=== PATIENT | male | born 1970 | race Caucasian/White ===

== ENCOUNTER 2018-07-13 12:17 | Inpatient (IN) | payer OTHER ==
[2018-07-13] MEDS: HYDROCODONE/APAP (10/325) TAB PO (12:31)
[2018-07-13] MEDS: ONDANSETRON (ODT) 4 MG TAB ODT (12:31)
[2018-07-13] MEDS: SOD CHLORIDE 0.9% 1,000 ML IV (13:03)
[2018-07-13] MEDS: PROPOFOL 200 MG INJ IV (14:00)
[2018-07-13 14:51] LABS: ADD MAN DIFF? NO
[2018-07-13 14:56] LABS: WHITE BLOOD COUNT 19.9 10^3/ul (4.8-10.8)
[2018-07-13 14:56] LABS: BASOPHILS % 0.2 % (0.0-2.0); EOSINOPHILS % 0.2 % (0.0-7.0); HEMATOCRIT 42.6 % (42.0-52.0); HEMOGLOBIN 14.1 g/dl (14.0-18.0); LYMPHOCYTES # 1.8 10^3/ul (0.8-2.9); LYMPHOCYTES % 9.1 % (15.0-51.0); MEAN CORPUSCULAR HEMOGLOBIN 29.3 pg (29.0-33.0); MEAN CORPUSCULAR HGB CONC 33.1 g/dl (32.0-37.0); MEAN CORPUSCULAR VOLUME 88.6 fl (82.0-101.0); MEAN PLATELET VOLUME 9.9 fl (7.4-10.4); MONOCYTES % 5.1 % (0.0-11.0); NEUTROPHIL # 16.9 10^3/ul (1.6-7.5); NEUTROPHILS % 84.9 % (39.0-77.0); PLATELET COUNT 259 10^3/UL (140-415); RED BLOOD COUNT 4.81 10^6/ul (4.70-6.10); RED CELL DISTRIBUTION WIDTH 13.6 % (11.5-14.5)
[2018-07-13] MEDS ORDERED: HYDROmorphONE 1 MG/ML SYG (15:30)
[2018-07-13] MEDS: HYDROmorphONE 0.5 MG/0.5 ML SYG IV ×2 (15:32→21:07)
[2018-07-13 15:47] LABS: ANION GAP 9 (5-13); BLOOD UREA NITROGEN 14 mg/dl (7-20); CALCIUM 8.5 mg/dl (8.4-10.2); CARBON DIOXIDE 25 mmol/L (21-31); CHLORIDE 105 mmol/L (97-110); CREATININE 0.82 mg/dl (0.61-1.24); Estimated GFR > 60 mL/min (>60); GLUCOSE 98 mg/dl (70-220); POTASSIUM 4.7 mmol/L (3.5-5.1); SODIUM 139 mmol/L (135-144)
[2018-07-13] MEDS ORDERED: ONDANSETRON 4 MG INJ IV (17:00)
[2018-07-13] MEDS ORDERED: HYDROCODONE/APAP (5/325) TAB PO (17:00)
[2018-07-13] MEDS ORDERED: VANCOMYCIN IV PER PHARMACY XX (17:00)
[2018-07-13] MEDS ORDERED: NACL 0.9% 3 ML SYG IV (17:00)
[2018-07-13] MEDS: VANCOMYCIN HCL 1.25 GM in SOD CHLORIDE 0.9% 250 ML IVPB (17:37)
[2018-07-13 18:59] LABS: C-REACTIVE PROTEIN < 0.5 mg/dl (0.0-0.9)
[2018-07-13 19:26] LABS: FREE T4 (FREE THYROXINE) 1.06 ng/dl (0.64-1.79)
[2018-07-13 19:59] LABS: LACTIC ACID 1.3 mmol/L (0.5-2.0)
[2018-07-13 20:51] LABS: ERYTHROCYTE SEDIMENTATION RATE 5 mm/Hr (0-15)
[2018-07-13] MEDS: CEFEPIME 1GM/50 ML (PMX) 50 ML IVPB (21:06)
[2018-07-14] MEDS: HYDROmorphONE 0.5 MG/0.5 ML SYG IV ×5 (01:34→19:43)
[2018-07-14 05:52] LABS: ADD MAN DIFF? NO
[2018-07-14] MEDS: VANCOMYCIN 1 GM 250 ML IVPB (05:54)
[2018-07-14 05:57] LABS: BASOPHILS % 0.3 % (0.0-2.0); EOSINOPHILS # 0.2 10^3/ul (0.0-0.5); EOSINOPHILS % 1.7 % (0.0-7.0); HEMATOCRIT 41.7 % (42.0-52.0); LYMPHOCYTES # 3.1 10^3/ul (0.8-2.9); LYMPHOCYTES % 25.8 % (15.0-51.0); MEAN CORPUSCULAR HEMOGLOBIN 29.1 pg (29.0-33.0); MEAN CORPUSCULAR HGB CONC 33.6 g/dl (32.0-37.0); MEAN CORPUSCULAR VOLUME 86.7 fl (82.0-101.0); MONOCYTES % 8.8 % (0.0-11.0); NEUTROPHIL # 7.5 10^3/ul (1.6-7.5); NEUTROPHILS % 63.1 % (39.0-77.0); PLATELET COUNT 261 10^3/UL (140-415); RED BLOOD COUNT 4.81 10^6/ul (4.70-6.10); RED CELL DISTRIBUTION WIDTH 13.6 % (11.5-14.5)
[2018-07-14 05:57] LABS: WHITE BLOOD COUNT 11.9 10^3/ul (4.8-10.8)
[2018-07-14 06:04] LABS: LACTIC ACID 0.8 mmol/L (0.5-2.0)
[2018-07-14 06:27] LABS: MAGNESIUM 1.8 mg/dl (1.7-2.5)
[2018-07-14 06:27] LABS: PHOSPHORUS 3.2 mg/dl (2.5-4.9)
[2018-07-14 06:28] LABS: ANION GAP 9 (5-13); BLOOD UREA NITROGEN 10 mg/dl (7-20); CALCIUM 8.4 mg/dl (8.4-10.2); CARBON DIOXIDE 27 mmol/L (21-31); CHLORIDE 102 mmol/L (97-110); CREATININE 0.67 mg/dl (0.61-1.24); Estimated GFR > 60 mL/min (>60); GLUCOSE 101 mg/dl (70-220); POTASSIUM 3.9 mmol/L (3.5-5.1); SODIUM 138 mmol/L (135-144)
[2018-07-14 07:13] LABS: C-REACTIVE PROTEIN 1.4 mg/dl (0.0-0.9)
[2018-07-14 08:03] LABS: ERYTHROCYTE SEDIMENTATION RATE 5 mm/Hr (0-15)
[2018-07-14] MEDS: ENOXAPARIN 40 MG/0.4 ML SYG SC (09:57)
[2018-07-14] MEDS: CEFEPIME 1GM/50 ML (PMX) 50 ML IVPB ×2 (09:58→21:58)
[2018-07-14 16:01] LABS: AMPHETAMINE/METHAMPHETAMINE Negative (NEGATIVE); BARBITURATES Negative (NEGATIVE); BENZODIAZEPINES Negative (NEGATIVE); CANNABINOIDS Positive (NEGATIVE); COCAINE Negative (NEGATIVE); OPIATES Positive (NEGATIVE)
[2018-07-14] MEDS: VANCOMYCIN HCL 1.25 GM in SOD CHLORIDE 0.9% 250 ML IVPB (18:00)
[2018-07-15] MEDS: HYDROmorphONE 0.5 MG/0.5 ML SYG IV ×2 (00:12→07:37)
[2018-07-15] MEDS: VANCOMYCIN HCL 1.25 GM in SOD CHLORIDE 0.9% 250 ML IVPB (05:22)
[2018-07-15 08:46] LABS: ADD MAN DIFF? NO
[2018-07-15 08:49] LABS: BASOPHILS % 0.2 % (0.0-2.0); EOSINOPHILS # 0.2 10^3/ul (0.0-0.5); EOSINOPHILS % 1.6 % (0.0-7.0); HEMATOCRIT 40.7 % (42.0-52.0); HEMOGLOBIN 13.8 g/dl (14.0-18.0); LYMPHOCYTES # 2.5 10^3/ul (0.8-2.9); LYMPHOCYTES % 19.7 % (15.0-51.0); MEAN CORPUSCULAR HEMOGLOBIN 29.4 pg (29.0-33.0); MEAN CORPUSCULAR HGB CONC 33.9 g/dl (32.0-37.0); MEAN CORPUSCULAR VOLUME 86.6 fl (82.0-101.0); MEAN PLATELET VOLUME 10.2 fl (7.4-10.4); MONOCYTE # 1.3 10^3/ul (0.3-0.9); MONOCYTES % 10.3 % (0.0-11.0); NEUTROPHIL # 8.7 10^3/ul (1.6-7.5); NEUTROPHILS % 67.8 % (39.0-77.0); PLATELET COUNT 243 10^3/UL (140-415); RED CELL DISTRIBUTION WIDTH 13.2 % (11.5-14.5)
[2018-07-15 08:49] LABS: WHITE BLOOD COUNT 12.8 10^3/ul (4.8-10.8)
[2018-07-15] MEDS: ENOXAPARIN 40 MG/0.4 ML SYG SC (09:00)
[2018-07-15 09:11] LABS: ANION GAP 10 (5-13); BLOOD UREA NITROGEN 11 mg/dl (7-20); CALCIUM 8.6 mg/dl (8.4-10.2); CARBON DIOXIDE 27 mmol/L (21-31); CHLORIDE 99 mmol/L (97-110); CREATININE 0.59 mg/dl (0.61-1.24); Estimated GFR > 60 mL/min (>60); GLUCOSE 104 mg/dl (70-220); POTASSIUM 3.6 mmol/L (3.5-5.1); SODIUM 136 mmol/L (135-144)
[2018-07-15 09:14] LABS: PHOSPHORUS 2.5 mg/dl (2.5-4.9)
[2018-07-15 09:14] LABS: MAGNESIUM 1.7 mg/dl (1.7-2.5)
[2018-07-15] MEDS: CEFEPIME 1GM/50 ML (PMX) 50 ML IVPB (09:19)
== END 2018-07-15 17:00 | disposition left against medical advice (07) | DRG 562 ==
LOC: E/R 12:17 → PP2 15:36
PROC: 0PSLXZZ Reposition Left Ulna, External Approach (ICD-10-PCS; principal; 2018-07-13)
DX: S42.401B Unspecified fracture of lower end of right humerus, initial encounter for open fracture (principal); S52.002B Unspecified fracture of upper end of left ulna, initial encounter for open fracture type I or II; S60.512A Abrasion of left hand, initial encounter; D72.829 Elevated white blood cell count, unspecified; Z72.0 Tobacco use; V19.9XXA Pedal cyclist (driver) (passenger) injured in unspecified traffic accident, initial encounter; Y93.55 Activity, bike riding; F19.10 Other psychoactive substance abuse, uncomplicated
CPT/HCPCS: 36415; 71045; 73070; 73080-RT; 73200; 80048; 80307; 83605; 83735; 84100; 84439; 84443; 85025; 85651; 86140; 87040-91; 96374; 96375; 99285-25